=== PATIENT | female | born 1990 | race Caucasian/White ===

== ENCOUNTER 2022-05-11 11:31 | Emergency (ER) | payer OTHER, SELFPAY ==
--- NOTE | ~2022-05-11 | CT_ITS ---
EXAMINATION: CT brain wo con DATE: 05/11/2022 12:18 INDICATION: Altered mental status. TECHNIQUE: Computed tomography (CT) of the head was performed without intravenous contrast. Sagittal and coronal reconstructions were performed. The mA was adjusted according to patient size. Iterative reconstruction technique was employed. The dose-length product was 529.67 mGy-cm. COMPARISON: None FINDINGS: No acute intracranial hemorrhage, acute infarction or abnormal extra axial fluid collection. Ventricl es are normal and symmetric. No mass/mass effect. Mild mucosal thickening in the left sphenoid and bi lateral ethmoid sinuses. The orbits and mastoid air cells are normal. IMPRESSION: 1. Normal brain. No acute intracranial process. Reviewed, dictated and finalized at location A.
--- NOTE | ~2022-05-11 | XR_ITS ---
EXAMINATION: XR chest 2V DATE: 05/11/2022 12:20 INDICATION: Altered mental status. Psychiatric clearance. TECHNIQUE: PA and lateral views of the chest were obtained. COMPARISON: None FINDINGS: The lungs are clear with no focal airspace opacities, pulmonary edema, pleural effusion or pneumothor ax. The cardiomediastinal silhouette is normal. Visualized bones and soft tissues are unremarkable. IMPRESSION: 1. Normal chest radiograph. Reviewed, dictated and finalized at location A. IMPRESSION: 1. Normal chest radiograph.
--- NOTE | 2022-05-11 11:38 | ED.GENADULT ---
HPI - General Adult General Chief complaint: Unspecified Stated complaint: new pysch med; wants evaluated for new med Time Seen by Provider: 05/11/22 11:38 History of Present Illness HPI narrative: The patient is a 31 yo female presenting to the emergency department for evaluation of manic behavior. Patient was at a sorority conference in [place] with friends when they noted her behavior to be erratic and nonsensical. They alerted family back in the area who then flew to [place] and brought the patient back to [place]. Patient has no history of psychosis, schizophrenia, alcohol or drug abuse. No history of behavior such as this in the past. Patient was brought to our facility via ambulance, noted to be alert and oriented to person, place, and to time. She is intermittently tearful,but understands she is here for psychiatric evaluation and her behavior. She denies suicidal ideation and homicidal ideation. She has no intent to end her life. She states it has been a week since she has seen her sons and she currently is in an argument with her mom which is why she believes her mother called the police. After speaking with family, they state that they are unsure if the patient has been sleeping regularly. They state that she left for [place] on May 08, into which some of her friends had noticed erratic behavior. The patient's friends contacted the patient's family who were here in [place] and the patient's mother flew to be with her after she had been taken to an emergency department in [place] for psychiatric evaluation. Patient was placed on Seroquel in the ER and then ultimately discharged home with the mom and they arrived back to [employer] on May 10 from [place]. Patient states that she feels like her behavior is off. At times she is repeatedly asking about a nurse at our facility named Laurie who is the of a police liaison officer that had called an ambulance for the patient today. She and this patient have never met. Pt is adamant that nothing is wrong with her. She denies any fever, chills, vision changes, headache, chest pain, shortness of breath. She denies any abdominal pain, nausea or vomiting. Denies any infectious type symptoms Her mom, she does have a history of suicidal ideation with approximately 6 years ago for which the patient was hospitalized at [facility]. No history of previous suicide attempt. Related Data Allergies Allergy/AdvReac Type Severity Reaction Status Date / Time Penicillins Allergy Rash Verified 05/11/22 11:38 Review of Systems Review of Systems: CONSTITUTIONAL: Denies fever, chills, or sweats. EYES: Denies visual changes, redness, or discharge. ENT: Denies rhinorrhea, congestion, sore throat, or otalgia. CARDIOVASCULAR: Denies chest pain, palpitations, or edema. RESPIRATORY: Denies cough or dyspnea. GASTROINTESTINAL: Denies abdominal pain, nausea, vomiting, or diarrhea. GENITOURINARY: Patient reports her urine feels funny. States that she feels like something is off. SKIN: Denies rash or itching. MUSCULOSKELETAL: Denies back pain, joint pain, or myalgia. NEUROLOGIC: Denies headache, numbness, or weakness. PSYCHIATRIC: Denies SI or HI PMFSH Past Medical History Medical History (Updated 05/11/22 @ 14:31 by Tiffanie Ennis MD) Manic behavior SARS-CoV-2 positive Exam Narrative: GENERAL: Awake, alert, conversant HEAD: Normocephalic, atraumatic. EYES: PERRLA and EOMI. ENT: Nares clear, no rhinorrhea or epistaxis. Mucous membranes moist. NECK: Supple. CHEST: No respiratory distress, breathing even and non labored HEART: Regular rate, sinus rhythm ABDOMEN:Non distended, non tender EXTREMITIES: Normal range of motion. No edema. SKIN: Warm, dry, no rash. NEURO:No focal deficits. Alert and oriented x3 Psych: Denies any homicidal or suicidal ideation, denies significant anxiety or depression Medical Decision Making MDM Narrative Medical decision making narrative:
--- NOTE | 2022-05-11 12:10 | PC.NURSE ---
PT MOVED FROM ROOM 18 TO [address] MCLEAN SPOKE WITH PT'S MOTHER AND MOTHER REPORTED TO DR. MCLEAN THAT SHE WANTS PT ADMITTED TO PSYCH FOR EVALUATION OF MENTAL HEALTH
--- NOTE | 2022-05-11 12:15 | PC.NURSE ---
Patient wanted to leave. Dr. Ennis went to speak with patient and determined that patient is not mentally competent to make the decision to leave AMA. Further information from mother reports that patient was discharged from psychiatric facility 1 week ago. Pt has flight of ideas noted. She was moved to room 15 friend at bedside, Mother is on property by not present with patient due to concern for escalation of behaviors at this time. Sitter will be placed for elopement risk.
--- NOTE | 2022-05-11 12:20 | PC.NURSE ---
Addendum entered by Taylor Brooks RN 05/11/22 16:32: Error - patient in room 15 - no call-light. Sitter with eyes on patient and friend at bedside. Patient denies SI/HI but sitter placed for elopement precautions. Original Note: Patient changed into scrubs. Belongings secured. Sitter at bedside. Call-light in reach.
[2022-05-11 12:32] LABS: Add Urine Microscopic? NO; Appearance Urine Clear (Clear); Bilirubin Urine Negative (Negative); Blood Urine Negative (Negative); Color Urine Yellow (Yellow); Glucose Urine UA Negative (Negative); Ketones Urine Negative (Negative); Leukocyte Esterase Ur Negative LEU/UL (Negative); Nitrate Urine Negative (Negative); Protein Urine Negative (Negative)
--- NOTE | 2022-05-11 12:40 | PC.NURSE ---
Patient report received from REGINA Quintana. All questions answered and care of patient assumed.
[2022-05-11 12:45] LABS: Basophils Percent Auto 0.3 % (0.2-1.2); Eosinophils Absolute Auto 0.1 K/mm3 (0-0.3); Hematocrit 33.9 % (37.0-47.0); Hemoglobin 11.3 g/dL (12.0-15.0); Lymphocytes Absolute Auto 1.56 K/mm3 (0.9-3.2); Lymphocytes Percent Auto 52.5 % (18.3-44.2); Mean Corpuscular HGB Conc 33.3 g/dl (32-36); Mean Corpuscular Hemoglobin 25.7 pg (26-34); Mean Corpuscular Volume 77.2 fl (80-100); Mean Platelet Volume 9.9 fl (7.4-10.4); Monocytes Absolute Auto 0.3 K/mm3 (0.1-0.6); Monocytes Percent Auto 8.8 % (2.6-8.5); Neutrophils Percent Auto 34.4 % (45.5-73.1); Platelet Count Result 232 k/mm3 (150-375); Red Blood Count 4.39 M/mm3 (4.2-5.4); Red Cell Distribution Width 14.3 % (11.5-14.5)
[2022-05-11 12:55] LABS: Amphetamine Screen Urine Negative (Negative); Barbiturate Screen Urine Negative (Negative); Benzodiazepines Screen Urine Negative (Negative); Cannabinoid Screen Urine Negative (Negative); Cocaine Screen Urine Negative (Negative); Methadone Screen Urine Negative (Negative); Opiate Screen Urine Negative (Negative); Phencyclidine Screen Urine Negative (Negative)
[2022-05-11 13:13] LABS: Acetaminophen < 10 ug/mL (10-30); Ethanol < 10 mg/dL (<10); Salicylate < 1.0 mg/dL (2-20)
[2022-05-11 13:15] LABS: Alanine Aminotransferase 24 U/L (6-35); Albumin Level 4.6 g/dL (3.5-5.1); Alkaline Phosphatase 52 U/L (38-126); Anion Gap 8 mmol/L (8-16); Aspartate Amino Transferase 42 U/L (14-36); Bilirubin,Total 0.5 mg/dL (0.2-1.3); Blood Urea Nitrogen 9 mg/dL (7-17); Calcium 8.9 mg/dL (8.4-10.2); Carbon Dioxide 31 mmol/L (22-30); Chloride 101 mmol/L (98-107); Estimated Glomerular Filt Rate > 60; Glucose 90 mg/dL (65-110); Potassium 3.3 mmol/L (3.4-5.0); Sodium 140 mmol/L (137-145)
[2022-05-11 13:22] LABS: SARS-CoV-2 RNA PCR Positive
--- NOTE | 2022-05-11 13:40 | PC.NURSE ---
Patient calm and cooperative with this nurse at this time. She is agreeable to taking PO Ativan to help with anxiety. She states yes I need that . She is fearful and suspicious however and needed to examine the packaging and asked friend at bedside to examine the packaging as well. The patient is alert and oriented x 4 although she is noted to have flight of ideas and tangentil thinking. Her short term and fci memory are intact. She denies HI or SI.
[2022-05-11] MEDS: LORazepam (*CRX) 1 MG TABLET PO (13:41)
[2022-05-11 13:43] LABS: Thyroid Stimulating Hormone 0.181 uIU/mL (0.465-4.680)
--- NOTE | 2022-05-11 13:47 | PC.NURSE ---
Per Dr. Buenrostro, patient is medically cleared to be evaluated by Crisis. Crisis contacted. Spoke with Monse. She reports that they will be here to assess pt within the hour.
--- NOTE | 2022-05-11 14:22 | PC.NURSE ---
pt. screaming, yelling, cussing us, wanting to leave; unable to redirect; Dr. Buenrostro spoke to family; per Dr. Buenrostro, family not doing a petition; no grounds to keep pt. Pt. would not stay for discharge papers and screaming and cussing all the way out the EMS doors. Friend with pt. observed both walking across parking lot. Taylor RN gave pt. clothes.
--- NOTE | 2022-05-11 14:25 | PC.NURSE ---
pt.'s screaming and cussing started apprx. 15 minutes before note about pt. leaving; Per Dr. Buenrostro, pt. alert, oriented x4, no SI or HI.
--- NOTE | 2022-05-11 14:40 | PC.NURSE ---
Crisis notified of patient's departure from ED.
== END 2022-05-11 14:25 | disposition home or self-care (01) ==
PROVIDERS: Emergency Provider Emergency Medicine
DX: U07.1 COVID-19 (principal); F30.9 Manic episode, unspecified
CPT/HCPCS: 36415; 70450; 71046; 80053; 80307; 81003; 84443; 85025; 99284; A9270; C9803; U0003; U0005

== ENCOUNTER 2024-07-30 09:16 | Outpatient (CLI) | payer OTHER, SELFPAY ==
--- NOTE | ~2024-07-30 | MMUS_ITS ---
EXAMINATION: MM diagnostic alfonzo BI w rolan, US breast BI complete HISTORY: Follow-up palpable breast abnormality. There are history of benign right breast aspiration. TECHNIQUE: Additional 3-D tomosynthesis images of the breasts were performed and synthetic 2-D images were generated. CAD analysis was submitted and interpreted. High resolution bilateral complete breas t ultrasound was performed. COMPARISON: No prior studies for comparison. BREAST PARENCHYMAL COMPOSITION: Dense: The breasts are extremely dense, which lowers the sensitivity of mammography. FINDINGS: MAMMOGRAPHIC FINDINGS: There are no suspicious masses, calcifications or architectural distortion in either breast. ULTRASOUND: Complete US of all 4 quadrants of the right and left breast/s and retroareolar region was reviewed. Right breast: At 1:00, 7 cm from the nipple there is a 1.3 cm cyst. Left breast: At 4:00, 6 cm from the nipple there is an oval circumscribed hypoechoic mass with parall el orientation measuring 6 mm without internal vascularity. IMPRESSION: 1. No evidence for malignancy in the right breast. Probable benign left breast mass measuring 6 mm at 4:00, 6 cm from the nipple. 2. Recommend 6 month follow-up Limited left breast ultrasound BI-RADS category 3, probably benign findings. Reviewed, dictated and finalized at location B. IMPRESSION: 1. No evidence for malignancy in the right breast. Probable benign left breast mass measuring 6 mm at 4:00, 6 cm from the nipple. 2. Recommend 6 month follow-up Limited left breast ultrasound BI-RADS category 3, probably benign findings.
== END 2024-07-30 09:17 | disposition home or self-care (01) ==
PROVIDERS: PCP Obstetrics & Gynecology; Visit Provider Obstetrics & Gynecology
DX: N63.10 Unspecified lump in the right breast, unspecified quadrant (principal); R92.8 Other abnormal and inconclusive findings on diagnostic imaging of breast
CPT/HCPCS: 76641; 77062; 77066; G0279

== ENCOUNTER 2025-06-12 09:46 | Outpatient (CLI) | payer OTHER, SELFPAY ==
--- NOTE | ~2025-06-12 | US_ITS ---
EXAMINATION: US breast LT limited HISTORY: 34-year-old woman presents for six-month follow-up ultrasound examination of the left breast. High resolution limited left breast ultrasound was performed. COMPARISON: 07/30/2024 FINDINGS: ULTRASOUND: Within the area of prior imaging concern (the 4:00 position of the left breast approximately 6 cm from the nipple) is a mostly well-circumscribed focus of decreased echogenicity measuring 8.7 x 4.9 x 6.8 mm (compared with 8.1 x 3.6 x 6.4 mm on the previous study). This focus sonographically has the appearance of an intramammary lymph node which by definition periodically increase and decrease in size, for which 2 years of relative morphologic stability is needed. Sonographic evaluation of the remainder of the left breast demonstrates benign fibroglandular elements without a cystic or solid lesion of concern. IMPRESSION: Findings at the 4:00 position of the left breast approximately 6 cm from the nipple which has the sonographic appearance of an intramammary lymph node for which short-term follow-up to establish 2 years of relative morphologic stability is needed. Recommend 3 month ultrasound follow-up BI-RADS category 3, probably benign findings. Reviewed, dictated and finalized at location A. IMPRESSION: Findings at the 4:00 position of the left breast approximately 6 cm from the n ipple which has the sonographic appearance of an intramammary lymph node for wh ich short-term follow-up to establish 2 years of relative morphologic stability is needed. Recommend 3 month ultrasound follow-up BI-RADS category 3, probably benign findings.
== END 2025-06-12 09:47 | disposition home or self-care (01) ==
LOC: MICIMG 09:47
PROVIDERS: PCP Obstetrics & Gynecology; Visit Provider Obstetrics & Gynecology
DX: N63.23 Unspecified lump in the left breast, lower outer quadrant (principal)
CPT/HCPCS: 76642